=== PATIENT | female | born 2005 | race Caucasian/White ===

== ENCOUNTER → 2023-11-27 15:20 | Outpatient (REF) | payer BC, SELFPAY | LOC: PNTC 15:20 | PROVIDERS: ATTENDING PHYSICIAN Obstetrics & Gynecology | DX: O99.210 Obesity complicating pregnancy, unspecified trimester (principal); O35.5XX0 Maternal care for (suspected) damage to fetus by drugs, not applicable or unspecified | CPT/HCPCS: 76816 ==

== ENCOUNTER → 2024-01-08 15:38 | Outpatient (REF) | payer BC, SELFPAY | LOC: PNTC 15:38 | PROVIDERS: ATTENDING PHYSICIAN Obstetrics & Gynecology | DX: O35.5XX0 Maternal care for (suspected) damage to fetus by drugs, not applicable or unspecified (principal); O99.210 Obesity complicating pregnancy, unspecified trimester | CPT/HCPCS: 76816 ==

== ENCOUNTER 2024-01-12 19:16 | Observation (INO) | payer OTHER, SELFPAY ==
[2024-01-12 19:27] VITALS: BP 132/86; BMI 40.4
[2024-01-12 19:50] LABS: Urine Albumin Trace (Neg - Trace); Urine Bilirubin 1+ (Negative); Urine Character Clear (Clear); Urine Color Yellow; Urine Glucose Trace (Negative); Urine Ketone Trace (Negative); Urine Leukocyte 2+ (Negative); Urine Nitrite Negative (Negative); Urine Occult Blood Negative (Negative); Urine Specific Gravity 1.015 (<1.030); Urine Urobilinogen 1+ (Neg - 1+); Urine pH 6.5 (5.0-9.0)
[2024-01-12 19:58] LABS: Urine Squamous Cell >30 /LPF (Few)
[2024-01-12 19:59] LABS: Urine Bacteria Many (Negative); Urine Red Blood Cell None Seen /HPF (0-2); Urine White Cell 21-25 /HPF (0-5)
[2024-01-12 19:59] LABS: % Basophils 0.3 % (0-2); % Eosinophils 1.8 % (0-6); % Immature Granulocytes 1.2 % (0-0.5); % Lymphocytes 17.8 % (20.5-51.1); % Monocytes 6.8 % (1.7-9.3); % Neutrophils 72.1 % (42.2-75.2); Absolute Basophils 0.1 10^3/uL (0-0.2); Absolute Eosinophils 0.3 10^3/uL (0-0.7); Absolute Immature Granulocytes 0.2 10^3/uL (0-0.05); Absolute Lymphocytes 2.6 10^3/uL (1.2-3.4); Absolute Neutrophils 10.5 10^3/uL (1.4-6.5); Hematocrit 33.6 % (37.0-47.0); Hemoglobin 11.7 g/dL (12.0-16.0); Mean Corp Hgb Conc. 34.8 g/dL (33.0-37.0); Mean Corpuscular Hgb 30.2 pg (27.0-31.0); Mean Corpuscular Volume 86.6 fL (81.0-99.0); Mean Platelet Volume 9.6 fL (7.4-10.4); Nucleated Red Blood Cells % 0 %; Platelet Count 262 10^3/uL (130-400); Red Blood Cell Count 3.88 10^6/uL (4.20-5.40); Red Cell Dist. Width 12.5 % (11.5-14.5); White Blood Cell Count 14.6 10^3/uL (4.8-10.8)
[2024-01-12 20:31] LABS: ALT (SGPT) 12 U/L (0-35); AST (SGOT) 28 U/L (14-36); Albumin 3.8 g/dl (3.5-5.0); Alkaline Phosphatase 169 U/L (38-126); Blood Urea Nitrogen 9 mg/dl (7-17); Calcium 9.3 mg/dl (8.4-10.2); Carbon Dioxide 20 mmol/L (22-30); Chloride 106 mmol/L (98-107); Estimated Creatinine Clearance > 125 ml/min; Glucose 88 mg/dl (70-99); Sodium 134 mmol/L (135-145); Total Bilirubin 0.5 mg/dl (0.2-1.3); eGFR > 60.00
== END 2024-01-12 20:55 | disposition home or self-care (01) ==
LOC: LDRP 19:16
PROVIDERS: ADMITTING PHYSICIAN Obstetrics & Gynecology
DX: O24.410 Gestational diabetes mellitus in pregnancy, diet controlled (principal); Z3A.34 34 weeks gestation of pregnancy; O99.343 Other mental disorders complicating pregnancy, third trimester; F41.9 Anxiety disorder, unspecified; F32.A Depression, unspecified
CPT/HCPCS: 80053; 81003; 81015; 85025; 86850; 86900; 86901; 87086; G0378

== ENCOUNTER → 2024-01-15 09:08 | Outpatient (REF) | payer OTHER, SELFPAY ==
--- NOTE | 2024-01-15 09:01 | PN.DIAED06 ---
Meal Plan - Gestational
- Breakfast
Gestational Diabetes Meal Plan Name: 1800 calories
Breakfast - Total Carbohydrate (grams): 30
Breakfast - Starch Carbohydrate: 1
Breakfast - Fruit Carbohydrate: 0
Breakfast - Milk Carbohydrate: 1
Breakfast - Nonstarchy Vegetables: Yes
Breakfast - Meat/Protein: 1
Breakfast - Fat: 2
- Morning Snack
Morning Snack - Total Carbohydrate (grams): 30
Morning Snack - Starch Carbohydrate: 1
Morning Snack - Fruit Carbohydrate: 0
Morning Snack - Milk Carbohydrate: 1
Morning Snack - Nonstarchy Vegetables: Yes
Morning Snack - Meat/Protein: 0.5
Morning Snack - Fat: 0
- Lunch
Lunch - Total Carbohydrate (grams): 45
Lunch - Starch Carbohydrate: 2
Lunch - Fruit Carbohydrate: 1
Lunch - Milk Carbohydrate: 0
Lunch - Nonstarchy Vegetables: Yes
Lunch - Meat/Protein: 2
Lunch - Fat: 1
- Afternoon Snack
Afternoon Snack - Total Carbohydrate (grams): 30
Afternoon Snack - Starch Carbohydrate: 1
Afternoon Snack - Fruit Carbohydrate: 1
Afternoon Snack - Milk Carbohydrate: 0
Afternoon Snack - Nonstarchy Vegetables: Yes
Afternoon Snack - Meat/Protein: 1
Afternoon Snack - Fat: 0
- Dinner
Dinner - Total Carbohydrate (grams): 45
Dinner - Starch Carbohydrate: 2
Dinner - Fruit Carbohydrate: 0
Dinner - Milk Carbohydrate: 1
Dinner - Nonstarchy Vegetables: Yes
Dinner - Meat/Protein: 2
Dinner - Fat: 2
- Evening Snack
Evening Snack - Total Carbohydrate (grams): 30
Evening Snack - Starch Carbohydrate: 1
Evening Snack - Fruit Carbohydrate: 0
Evening Snack - Milk Carbohydrate: 1
Evening Snack - Nonstarchy Vegetables: Yes
Evening Snack - Meat/Protein: 1
Evening Snack - Fat: 1
--- NOTE | 2024-01-15 10:12 | PN.DIAED02 ---
Referral
Referred For: Gestational Diabetes Self-Management Training, Management of Diabetes During , Medical Nutrition Therapy, Self-Blood Glucose Monitoring
PHI Release Authorization Form Signed: Yes
Patient Problems:
Current Active Problems
Problem Status Onset
Diabetes mellitus, gestational ~01/09/24
Demographic
(1) Diabetes mellitus, gestational
Status: Acute
Qualifiers:
Gestational diabetes mellitus control: diet-controlled Trimester: third trimester Qualified Code(s): O24.410 - Gestational diabetes mellitus in , diet controlled
Code(s): O24.419 - Gestational diabetes mellitus in , unspecified control
Patient's primary language-: Honduran
- Social
Primary Support Person: Self, Parent(s)
Primary Care Takers: Self, Parent(s)
Living Arrangements: Parent(s)
- Learning Methods
Preferred Method: Reading, Video
Barriers to Learning: None
Care Plan
- Education Needs
Patient Education Needs: Nutritional management, Preconception care//gestational diabetes management
Recommended Diabetes Training Program based on assessment: Gestational Diabetes Management
- Plan of Care
Plan of Care:
Met with Ms. Jacobs today, , currently at 34 weeks of gestation, here today for medical nutrition therapy.
Explained glucose metabolism in body and what occurs during to cause increase blood sugar. Discussed importance of keeping BS well controlled to avoid complications to the baby during and after (macrosomia, hypoglycemia). Explained
to Alina that she is at increased risk of developing T2DM in the future. Alina reports that she alvaraod a glucose monitor at home and has been monitoring her blood sugars 2 hrs after each meal since dx of GDM. Reviewed proper testing technique, testing
sites and testing pattern. She is aware to test FBS and 2 hr pp each meal. Expected results for FBS <95 mg/dl and 2 hr pp <120 mg/dl.
Alina does not eat much of any non-starchy vegetables, she states that her diet consists mainly of carbs and some fruits. She eats chicken or steak with mac &cheese or mashed potatoes for dinner, sometimes burgers for lunch. She couldn't remember
what else she eats at lunch. Explained high carbohydrate diet and macronutrients and the effect each has on blood sugar. Provided with 1800 lyly GDM meal plan. She was educated on how to read a nutritional fact label and look at total CHO in relation
to serving size. No fruit or fruit juice until noontime. Provided with handout on snacks as well as 'Choose Your Foods' booklet. A Log sheet was provided for her to record results, she will send her 4 day meal log with all her FBG and 2hr Post
prandial glucose numbers to this office for review. In addition, she will send all her glucose readings to Carole at [facility] every Friday. She was encouraged to keep a regular activity schedule and will reach out should she require insulin.
== END ==
LOC: DES 09:08
PROVIDERS: ATTENDING PHYSICIAN Obstetrics & Gynecology
DX: O24.419 Gestational diabetes mellitus in pregnancy, unspecified control (principal)
CPT/HCPCS: 99078

== ENCOUNTER → 2024-02-05 15:06 | Outpatient (REF) | payer OTHER, SELFPAY | LOC: PNTC 15:06 | PROVIDERS: ATTENDING PHYSICIAN Obstetrics & Gynecology | DX: O24.419 Gestational diabetes mellitus in pregnancy, unspecified control (principal) | CPT/HCPCS: 76816 ==

== ENCOUNTER 2024-02-23 19:04 | Inpatient (IN) | payer OTHER, SELFPAY ==
[2024-02-23 19:19] VITALS: BMI 42.0
[2024-02-23 19:57] LABS: Glucose - Point of Care 110 mg/dl (70-99)
[2024-02-23] MEDS: CYTOTEC 50 MICROGRAM VAG (20:20)
[2024-02-23 20:22] LABS: % Basophils 0.3 % (0-2); % Eosinophils 1.3 % (0-6); % Immature Granulocytes 0.9 % (0-0.5); % Lymphocytes 18.2 % (20.5-51.1); % Monocytes 5.8 % (1.7-9.3); % Neutrophils 73.5 % (42.2-75.2); Absolute Eosinophils 0.2 10^3/uL (0-0.7); Absolute Immature Granulocytes 0.1 10^3/uL (0-0.05); Absolute Lymphocytes 2.3 10^3/uL (1.2-3.4); Absolute Monocytes 0.7 10^3/uL (0.1-0.6); Absolute Neutrophils 9.3 10^3/uL (1.4-6.5); Hemoglobin 11.6 g/dL (12.0-16.0); Mean Corp Hgb Conc. 34.1 g/dL (33.0-37.0); Mean Corpuscular Hgb 29.1 pg (27.0-31.0); Mean Corpuscular Volume 85.2 fL (81.0-99.0); Mean Platelet Volume 9.5 fL (7.4-10.4); Nucleated Red Blood Cells % 0 %; Platelet Count 258 10^3/uL (130-400); Red Blood Cell Count 3.99 10^6/uL (4.20-5.40); Red Cell Dist. Width 13.1 % (11.5-14.5); White Blood Cell Count 12.6 10^3/uL (4.8-10.8)
[2024-02-23] MEDS: LR 1000 IV (20:25)
[2024-02-23 20:55] VITALS: BP 124/77
[2024-02-23] MEDS: CELEXA 10 MG PO (21:52)
[2024-02-24 00:11] LABS: Glucose - Point of Care 112 mg/dl (70-99)
[2024-02-24] MEDS: LR 1000 IV ×3 (00:16→12:36)
[2024-02-24 03:54] LABS: Glucose - Point of Care 96 mg/dl (70-99)
[2024-02-24 07:30] LABS: Glucose - Point of Care 94 mg/dl (70-99)
[2024-02-24 07:53] LABS: ALT (SGPT) < 10 U/L (0-35); AST (SGOT) 21 U/L (14-36); Albumin 3.3 g/dl (3.5-5.0); Alkaline Phosphatase 225 U/L (38-126); Blood Urea Nitrogen 8 mg/dl (7-17); Calcium 9.4 mg/dl (8.4-10.2); Carbon Dioxide 22 mmol/L (22-30); Chloride 107 mmol/L (98-107); Estimated Creatinine Clearance > 125 ml/min; Glucose 94 mg/dl (70-99); Potassium 4.1 mmol/L (3.5-5.1); Sodium 136 mmol/L (135-145); Total Bilirubin 0.4 mg/dl (0.2-1.3); Total Protein 6.4 g/dl (6.3-8.2); eGFR > 60.00
[2024-02-24 12:04] LABS: Glucose - Point of Care 82 mg/dl (70-99)
[2024-02-24] MEDS: FENTANYL/BUPIVACAINE 100 EPIDURAL (12:15)
[2024-02-24] MEDS: SUBLIMAZE 100 MCG EPIDURAL (12:15)
[2024-02-24 16:06] LABS: Protein/creatinine Ratio 0.1; Urine Protein 9 mg/dl
[2024-02-24 17:05] LABS: Cord ABG Comment CORD BLOOD
[2024-02-24 17:08] LABS: B.E. Cord ABG -6.6 mMOL/L; HCO3 Cord ABG 19.7 mmol/L; O2 Saturation % Cord ABG 66.4 %; PCO2 Cord ABG 41 mmHg; PO2 Cord ABG 36 mmHg; pH Cord ABG 7.29
[2024-02-24 17:09] LABS: B.E. Cord ABG -5.2 mMOL/L; O2 Saturation % Cord ABG 16.1 %; PCO2 Cord ABG 67 mmHg; PO2 Cord ABG 14 mmHg; pH Cord ABG 7.18
--- NOTE | 2024-02-24 17:36 | W.IMMPOSTOP ---
Surgical Immed Post Op Note
-
Primary Surgeon: Inge Montes, DO
Assisting Surgeon: Laura Caballero, rn med surg
Pre-op Diagnosis: IUP at 40+4wks, labor, NRFHT, obesity, A2GDM, GHTN, SSRI exposure in
Post-op Diagnosis: IUP at 40+4wks, labor, NRFHT, obesity, A2GDM, GHTN, SSRI exposure in , ?arcuate uterus
Procedure Performed: PLTCS
Anesthesia Type: epidural
Specimen / Cultures: cord gases, cord blood (for maternal blood type O pos), placenta
Estimated Blood Loss: 575ml
Complications: none
Operative Findings: female in the cephalic presentation, nuchal cord x1 and cord also wrapped around wrist (right). Apgars 8/9. Meconium stained fluid. uterus with slight indentation at the fundus, possible arcuate uterus? Otherwise
normal-appearing. Normal b/l tubes and ovaries.
[2024-02-24] MEDS: TORADOL 15 MG IV (19:30)
[2024-02-24] MEDS: PRENATAL PLUS PO (22:43)
[2024-02-24] MEDS: BACTROBAN 2% OINTMENT TOPICAL (22:44)
[2024-02-24] MEDS: CELEXA PO (22:48)
[2024-02-25] MEDS: TORADOL 15 MG IV ×3 (02:00→14:28)
--- NOTE | 2024-02-25 03:20 | DOWNTIME ---
There was a [employer] Pharmacist Downtime on 02/24/2024 from 0100 to 02/25/2024 at 0300. Downtime documentation of patient's care, including medication administrations, has been reconciled in the electronic record per guidelines. Refer to the
patient's paper chart under the miscellaneous tab to see printed paper medication records and downtime forms.
[2024-02-25 04:48] LABS: Hemoglobin 10.1 g/dL (12.0-16.0); Mean Corp Hgb Conc. 34.8 g/dL (33.0-37.0); Mean Corpuscular Hgb 29.2 pg (27.0-31.0); Mean Corpuscular Volume 83.8 fL (81.0-99.0); Mean Platelet Volume 9.6 fL (7.4-10.4); Platelet Count 252 10^3/uL (130-400); Red Blood Cell Count 3.46 10^6/uL (4.20-5.40); Red Cell Dist. Width 13.2 % (11.5-14.5); White Blood Cell Count 22.6 10^3/uL (4.8-10.8)
--- NOTE | 2024-02-25 08:13 | W.PN.ANS.POP ---
Anesthesia Post Operative
- Anesthesia Post Op Note
Vital Signs Stable-See Nursing Note: Yes
Airway Patent: Yes
Adequate Pain Control: Yes
Change in Mental Status: No
Current Postoperative Nausea & Vomiting: No
Anesthesia Complications: No
General Anesthetic Recall: No
Unplanned Admission: No
Post Op Hydration Adequate: Yes
[2024-02-25] MEDS: BACTROBAN 2% OINTMENT 1 APPLIC TOPICAL ×2 (08:16→14:29)
[2024-02-25] MEDS: SENOKOT-S 1 TABLET PO (09:16)
[2024-02-25] MEDS: PRENATAL PLUS 1 TABLET PO (09:16)
[2024-02-25] MEDS: FEOSOL 325 MG PO ×2 (09:16→19:59)
--- NOTE | 2024-02-25 15:15 | CM ---
Met with new mother Alina and her mother at bedside
Mom has named her daughter Ada Jacobs
Father of baby is 'around' but 'not really involved'
Alina lives with her step-father and 2 brothers ages 9 and 7. Her mother lives nearby and is supportive. Step-father is also supportive
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
Mom reports she plans to breast feed and has a breast pump
Mom reports she has supplies for her including crib and car seat
Planning to use [facility] in [place] - will schedule appointment
Given information on the WIC program and the [facility] Maternal Child VNA program
CM will follow for additional needs if needed
[2024-02-25] MEDS: MOTRIN 600 MG PO (20:09)
[2024-02-25] MEDS: TYLENOL 650 MG PO (21:16)
[2024-02-25] MEDS: CELEXA 10 MG PO (22:04)
[2024-02-25] MEDS: BACTROBAN 2% OINTMENT TOPICAL (22:06)
[2024-02-26] MEDS: TYLENOL 650 MG PO ×4 (01:39→23:50)
[2024-02-26] MEDS: BACTROBAN 2% OINTMENT 1 APPLIC TOPICAL ×3 (07:30→21:10)
[2024-02-26] MEDS: FEOSOL 325 MG PO ×2 (09:04→19:42)
[2024-02-26] MEDS: MOTRIN 600 MG PO ×3 (09:04→23:49)
[2024-02-26] MEDS: PRENATAL PLUS 1 TABLET PO (09:04)
[2024-02-26] MEDS: PERCOCET 5/325 1 TABLET PO (14:10)
[2024-02-26] MEDS: MYLICON 80 MG PO (16:40)
[2024-02-26] MEDS: SENOKOT-S 1 TABLET PO (16:40)
[2024-02-26] MEDS: CELEXA 10 MG PO (21:10)
[2024-02-27] MEDS: TYLENOL 650 MG PO ×2 (06:28→12:42)
[2024-02-27] MEDS: MOTRIN 600 MG PO ×2 (06:28→12:43)
[2024-02-27] MEDS: PRENATAL PLUS 1 TABLET PO (08:35)
[2024-02-27] MEDS: FEOSOL 325 MG PO (08:35)
[2024-02-27] MEDS: BACTROBAN 2% OINTMENT 1 APPLIC TOPICAL ×2 (08:37→10:43)
[2024-02-27 13:30] LABS: Syphilis/T. pallidum Ab Reflex Negative (Negative)
--- NOTE | 2024-02-27 14:47 | W.DS.TRANS ---
DC Summary - [employer]
-
Discharge Instructions:
Discharge Diagnosis/Procedures primary cs
Instructions:
Stand-Alone Forms: LDRP Delivery
Changes to Home Medications: No
Discharge Medications:
DC Medications w/original date entered in [facility]
citalopram 10 mg tablet 10 mg PO QHS Mental Health/Anxiety 01/12/24
prenat.vits,lyly,rhk-zgxj-xhihn 1 tab PO DAILY Supplement 01/12/24
ibuprofen 600 mg tablet 600 mg PO Q6HPRN PRN cramps #90 tabs 02/27/24
Home Medication Changes
Pending Results: No
Total time spent discharging patient (in min): 20
== END 2024-02-27 15:36 | disposition home or self-care (01) | DRG 788 ==
LOC: LDRP 19:04
PROVIDERS: Obstetrics & Gynecology; ADMITTING PHYSICIAN Obstetrics & Gynecology; FAMILY PHYSICIAN Obstetrics & Gynecology
PROC: 3E0P7VZ Introduction of Hormone into Female Reproductive, Via Natural or Artificial Opening (ICD-10-PCS; 2024-02-23)
PROC: 3E0E77Z Introduction of Electrolytic and Water Balance Substance into Products of Conception, Via Natural or Artificial Opening (ICD-10-PCS; 2024-02-24)
PROC: 6A550ZT Pheresis of Cord Blood Stem Cells, Single (ICD-10-PCS; 2024-02-24)
PROC: 10D00Z1 Extraction of Products of Conception, Low, Open Approach (ICD-10-PCS; 2024-02-24)
PROC: 10H07YZ Insertion of Other Device into Products of Conception, Via Natural or Artificial Opening (ICD-10-PCS; 2024-02-24)
PROC: 10907ZC Drainage of Amniotic Fluid, Therapeutic from Products of Conception, Via Natural or Artificial Opening (ICD-10-PCS; 2024-02-24)
DX: O24.420 Gestational diabetes mellitus in childbirth, diet controlled (principal); Z3A.40 40 weeks gestation of pregnancy; Z37.0 Single live birth; O48.0 Post-term pregnancy; O99.344 Other mental disorders complicating childbirth; F32.A Depression, unspecified; F41.9 Anxiety disorder, unspecified; O76 Abnormality in fetal heart rate and rhythm complicating labor and delivery; O13.4 Gestational [pregnancy-induced] hypertension without significant proteinuria, complicating childbirth; S30.811A Abrasion of abdominal wall, initial encounter; X58.XXXA Exposure to other specified factors, initial encounter; Y93.89 Activity, other specified; Y92.9 Unspecified place or not applicable; O99.214 Obesity complicating childbirth; O69.81X0 Labor and delivery complicated by cord around neck, without compression, not applicable or unspecified; O69.82X0 Labor and delivery complicated by other cord entanglement, without compression, not applicable or unspecified; O77.0 Labor and delivery complicated by meconium in amniotic fluid; O34.03 Maternal care for unspecified congenital malformation of uterus, third trimester; Q51.810 Arcuate uterus; Z82.49 Family history of ischemic heart disease and other diseases of the circulatory system
CPT/HCPCS: 88307; 80053; 82570; 82803; 82962; 84156; 85025; 85027; 86780; 86850; 86900; 86901

== ENCOUNTER 2024-05-04 22:44 | Emergency (ER) | payer OTHER, SELFPAY ==
[2024-05-04 23:03] VITALS: BP 134/80
[2024-05-04 23:41] LABS: % Basophils 0.6 % (0-2); % Eosinophils 5.4 % (0-6); % Immature Granulocytes 0.3 % (0-0.5); % Lymphocytes 34.7 % (20.5-51.1); % Monocytes 5.7 % (1.7-9.3); % Neutrophils 53.3 % (42.2-75.2); Absolute Basophils 0.1 10^3/uL (0-0.2); Absolute Eosinophils 0.5 10^3/uL (0-0.7); Absolute Lymphocytes 3.1 10^3/uL (1.2-3.4); Absolute Monocytes 0.5 10^3/uL (0.1-0.6); Absolute Neutrophils 4.8 10^3/uL (1.4-6.5); Hematocrit 34.8 % (37.0-47.0); Hemoglobin 12.2 g/dL (12.0-16.0); Mean Corp Hgb Conc. 35.1 g/dL (33.0-37.0); Mean Corpuscular Hgb 26.8 pg (27.0-31.0); Mean Corpuscular Volume 76.5 fL (81.0-99.0); Nucleated Red Blood Cells % 0 %; Platelet Count 348 10^3/uL (130-400); Red Blood Cell Count 4.55 10^6/uL (4.20-5.40)
[2024-05-04 23:48] LABS: Urine Albumin Negative (Neg - Trace); Urine Bilirubin Negative (Negative); Urine Character Clear (Clear); Urine Color Yellow; Urine Glucose Negative (Negative); Urine Ketone Negative (Negative); Urine Leukocyte Trace (Negative); Urine Nitrite Negative (Negative); Urine Occult Blood Negative (Negative); Urine Urobilinogen Negative (Neg - 1+)
[2024-05-04 23:57] LABS: HCG, Serum Qualitative Screen Negative
[2024-05-05] LABS: ALT (SGPT) 20 U/L (0-35); AST (SGOT) 30 U/L (14-36); Albumin 4.5 g/dl (3.5-5.0); Alkaline Phosphatase 117 U/L (38-126); Blood Urea Nitrogen 14 mg/dl (7-17); Calcium 9.8 mg/dl (8.4-10.2); Carbon Dioxide 24 mmol/L (22-30); Chloride 105 mmol/L (98-107); Glucose 120 mg/dl (70-99); Lipase 177 U/L (23-300); Potassium 3.9 mmol/L (3.5-5.1); Sodium 138 mmol/L (135-145); Total Bilirubin 0.3 mg/dl (0.2-1.3); Total Protein 7.3 g/dl (6.3-8.2); eGFR > 60.00
[2024-05-05 00:25] LABS: Urine Squamous Cell 16-20 /LPF (Few)
[2024-05-05 00:27] LABS: Urine Bacteria Few (Negative)
[2024-05-05] MEDS: TORADOL 30 MG IM (01:07)
[2024-05-05 01:09] VITALS: BP 129/90
[2024-05-05 01:10] VITALS: BMI 40.4
--- NOTE | 2024-05-05 02:04 | ED.GENMED ---
History of Present Illness
General
Chief Complaint: Abdominal Pain
Source: patient
Exam Limitations: none
Time Seen by Provider: 05/05/24 00:11
Nursing documentation reviewed up to this point in time: agreed with
History of Present Illness
History of Present Illness:
Patient is a 19-year-old female who is 8 and half weeks who presents to the emergency department complaining of significant right upper quadrant pain this evening. Patient's been having it intermittently since delivering. Patient states
it is worse with eating. Patient had a hoagie tonight. Patient denies fever or chills. Patient had mild nausea but denies any vomiting, diarrhea, melena or hematochezia. Patient denies any symptoms. Not breast-feeding
Past History
Past History
ED Past Medical History: Psychiatric (Anxiety and depression)
ED Past Surgical History: None
Social History
Tobacco: Non-smoker
Alcohol: None
Drug: None
Personal: Single
Living: with family
Employment: Employed
Family History
Family History: Other (Noncontributory)
Review of Systems
Review of Systems
All Other Systems: ROS reviewed and negative except as documented in HPI and ROS
Constitutional: Reports no symptoms
EENT: Reports no symptoms
Respiratory: Reports no symptoms
Cardiac: Reports no symptoms
ABD/GI: Reports abdominal pain and nausea; Denies vomiting, diarrhea, constipated, bloody stools, black stools or anorexia
: Reports no symptoms
Musculoskeletal: Reports no symptoms
Skin: Reports no symptoms
Neurological: Reports no symptoms
Hematologic/Lymphatic: Reports no symptoms
Phy Exam
Physical Exam
Physical Exam:
Physical Exam
General: mild distress, alert and appropriate, well nourished, well hydrated
HENT: Normocephalic, supple with no lymphadenopathy, no thyromegaly
Eyes: Clear sclera, conjuctiva without injection
Heart: Regular rhythm and rate. No S3, S4. No murmur.
Lungs: No respiratory distress, no stridor, lung sounds clear and equal bilaterally
Abdomen: Soft, mild to moderate right upper quadrant tenderness without guarding or rebound, no organomegaly, no CVA tenderness, BS good
Neuro: Alert and oriented x 3, CN II - XII intact, no motor focality, no cerebellar dysfunction
Skin: no rash
Psychiatric: well kept. interactive and cooperative
Extremities: No edema, cyanosis, tenderness, Good and equal peripheral pulses.
Scores
Heart Failure Risk
Heart Failure Risk Score: Not Applicable
Heart Score for Chest Pain Patients
STEMI patient?: Not applicable
Withdrawal Assessment of Alcohol
Withdrawal Assessment Completed?: Not applicable
Course
Orders/Labs/Results
Orders:
Orders
05/04/24 23:09
Test Result ONCE
05/04/24 23:24
Complete Blood Count/With Diff Urgent
Comprehensive Metabolic Panel Urgent
HCG, Serum Qualitative Screen Urgent
Lipase Urgent
Urinalysis Reflex To Culture Urgent
Date Specimen was Collected: 05/04/24
Time Specimen was Collected: 23:09
Urine Microscopic Reflex Cult Urgent
05/05/24 00:50
Ketorolac [Toradol] 30 mg IM NOW STA
05/05/24 00:54
US Abdomen Complete/Upper Urgent
Comment:
Reason For Exam: RUQ tender
Abnormal Lab Results
05/04/24
23:24
Hct 34.8 L %
(37.0-47.0)
MCV 76.5 L fL
(81.0-99.0)
MCH 26.8 L pg
(27.0-31.0)
Glucose 120 H mg/dl
(70-99)
Leukocyte Esterase Rfl Trace A
(Negative)
Urine RBC 3-6 A /HPF
(0-2)
Urine Bacteria (Reflex) Few A
(Negative)
05/04/24 23:24
05/04/24 23:24
Vital Signs
Initial and Last Documented VS:
Initial Vital Signs
Temp Pulse Resp BP Pulse Ox
98.6 F 62 20 134/80 99
05/04/24 23:03 05/04/24 23:03 05/04/24 23:03 05/04/24 23:03 05/04/24 23:03
Last Documented Vital Signs
Temp Pulse Resp BP Pulse Ox
98.6 F 62 20 129/90 99
05/04/24 23:03 05/04/24 23:03 05/04/24 23:03 05/05/24 01:09 05/05/24 01:10
*Radiology
Radiology exam reviewed: radiology read reviewed (Gallstones without apparent cholecystitis)
*Pulse Oximetry
Patient hypoxic: no
*EKG
Interpreted by ED Provider?: NA
*Watch Inspector Interpretation
Rate: Watch Inspector- N/A
*Critical Care Note
Total Time (30-74mins, 75-104mins- exclusive of procedures): Not Applicable
Update Note
Update Note:
Patient has gallstones without cholecystitis. Patient does not have LFT elevation or lipase elevation. However will refer patient to surgery given her symptoms are suggestive of gallbladder disease.
ED Attending Note
-
Portions of this chart may have been created with voice recognition software.� Occasional wrong word or��sound alike� substitutions may have occurred due to the inherent limitations of voice recognition software.
Discharge Plan
Departure
Patient Disposition: Home (Routine Discharge)
Date of Disposition: 05/05/24
Time of Disposition: 02:33
Patient with high blood pressure during this ER visit?: No
Condition: Good
Covid-19: Not Applicable
Discharge Problem:
Abdominal pain, Cholelithiasis
Instructions: Gallstones (DC), Abdominal Pain
Prescriptions:
No Action
prenat.vits,lyly,wxa-rtxv-ffgri Tablet
1 tab PO DAILY
citalopram 10 mg Tablet
10 mg PO QHS
Referrals:
Dixie Martinez CRNP [Family Provider] - Follow up in 2-3 days
Isael Kemp MD [Active] - Call in 1-3 days for appt
Activity Restrictions/Additional Instructions:
Acetaminophen 650 mg or ibuprofen 600 mg every 6 hours for pain. Avoid fatty or fried foods. Follow-up with your physician and the surgeon above.
Interventions
Interventions:
*Risk Screen - Suicide Last Done: 05/04/24 23:03
*General Assessment Last Done: 05/04/24 23:03
*Neglect/Abuse Screening Last Done: 05/04/24 23:03
ED- Fall Risk Assessment Last Done: 05/04/24 23:03
*ED COVID-19 Vaccine History Last Done: 05/04/24 23:03
DX-Gvlyrx-Qzzzyxlbxd Assessment Last Done: 05/05/24 01:11
Discharge Date and Time
Print Language: JORDANIAN
[2024-05-05 02:54] VITALS: BP 125/82
== END 2024-05-05 02:58 | disposition home or self-care (01) ==
LOC: EMR 22:44
PROVIDERS: EMERGENCY PHYSICIAN Emergency Medicine; FAMILY PHYSICIAN Nurse Practitioner
DX: R10.11 Right upper quadrant pain (principal); K80.20 Calculus of gallbladder without cholecystitis without obstruction
CPT/HCPCS: 99284; 96372; 76700; 80053; 81003; 81015; 83690; 84703; 85025

== ENCOUNTER 2024-05-14 14:20 | Observation (INO) | payer OTHER, SELFPAY ==
[2024-05-14] VITALS (13 sets, daily range): BP systolic 94–179; BP diastolic 49–96; BMI 40.4
--- NOTE | 2024-05-14 06:28 | ED.GENMED ---
History of Present Illness
<Radha Merino MD, Resident - Last Filed: 05/14/24 10:19>
General
Chief Complaint: Abdominal Pain
Time Seen by Provider: 05/14/24 06:26
<Jace Wolfe DO - Last Filed: 05/14/24 13:54>
History of Present Illness
History of Present Illness:
HPI: Patient presents with severe right upper quadrant pain. This is associated with vomiting. Of note, she is scheduled for cholecystectomy 06/07/2024. She has pain that radiates into the back/shoulder region. This feels very similar to when she
was here with gallstones a week ago.
EXAM:
GENERAL: The patient is crying in moderate to severe distress, BMI 40
HEENT: Moist oral mucosa
CARDIOVASCULAR: No murmurs, normal heart rate, regular rhythm, No chest wall tenderness
PULMONARY: No respiratory distress, breath sounds are clear and equal
ABDOMEN: Soft with no peritoneal signs, moderate right upper quadrant tenderness
NEUROLOGIC: Excellent strength all extremities, no coordination deficits
PSYCHIATRIC: Appropriate mental status, normal insight and judgement
EXTREMITIES: Nontender, no edema, moves all extremities equally
SKIN: No rash, no lesions
TIME OF INITIAL ENCOUNTER: 6:35 AM
NUMBER AND COMPLEXITY OF PROBLEMS ADDRESSED AT THE ENCOUNTER
� Chronic conditions affecting care: Gallstones, depression
� Acute Exacerbation and/or Progression of Chronic Illness: This is an acute but recurring problem
� Differential Diagnosis includes: Biliary colic, cholecystitis, pancreatitis, GERD
AMOUNT AND/OR COMPLEXITY OF DATA TO BE REVIEWED AND ANALYZED
� I performed an independent evaluation of and my interpretation is:
EKG:
CT:
X-rays:
Laboratory Studies: White count 12.6, hemoglobin normal, LFTs and lipase unremarkable
Other: Ultrasound imaging personally viewed�gallstones again seen but no evidence for infection
� Review of other/old records: Ultrasound from 05/05/2024 showed gallstones without cholecystitis
� Clinical information was obtained by an independent historian: I spoke to family at bedside
� Prescriptions/Medications Considered but not given:
� Further testing considered but not performed:
RISK OF COMPLICATIONS AND/OR MORBIDITY OR MORTALITY OF PATIENT MANAGEMENT
� Social determinants of health affecting care: Lives at home
� Discussion with other providers: I discussed case with Dr. Vu who recommends keeping in the patient in the ED until he can evaluate patient later today; Dr. Vu evaluated patient at 1:50 PM and will take on his service
for further management.
� Escalation of care including admission/observation vs risk of discharge considered: The patient appears very uncomfortable. She was given Dilaudid and Zofran along with IV fluids. We did repeat Dilaudid later in her stay in
the ED because of recurrence of pain.
Past History
<Radha Merino MD, Resident - Last Filed: 05/14/24 10:19>
Past History
ED Past Medical History: Psychiatric (Anxiety and depression)
ED Past Surgical History: None
Social History
Tobacco: Non-smoker
Alcohol: None
Drug: None
Personal: Single
Living: with family
Employment: Employed
Family History
Family History: Other (Noncontributory)
Phy Exam
<Radha Merino MD, Resident - Last Filed: 05/14/24 10:19>
Physical Exam
Physical Exam:
on the note
Course
<Radha Merino MD, Resident - Last Filed: 05/14/24 10:19>
Orders/Labs/Results
Orders:
Orders
05/14/24 06:28
IV Insert/Care/Rem.- Treatment PRN
05/14/24 06:35
0.9% Sodium Chloride 1000 ml [Nss] 1,000 ml IV BOLUS
Test Result ONCE
05/14/24 06:38
Complete Blood Count/With Diff Urgent
Comprehensive Metabolic Panel Urgent
HCG, Serum Qualitative Screen Urgent
Lipase Urgent
05/14/24 06:39
0.9% Sodium Chloride 1000 ml [Nss] 1,000 ml IV BOLUS
HYDROmorphone [Dilaudid] 1 mg IV NOW STA
Ondansetron Injectable [Zofran] 4 mg .ROUTE .STK-MED ONE
Ondansetron Injectable [Zofran] 4 mg IV NOW STA
05/14/24 06:40
HYDROmorphone [Dilaudid] 1 mg .ROUTE .STK-MED ONE
05/14/24 07:04
US Abdomen Complete/Upper Urgent
Comment:
Reason For Exam: RUQ pain
05/14/24 08:36
HYDROmorphone [Dilaudid] 0.5 mg IV NOW STA
05/14/24 12:11
HYDROmorphone [Dilaudid] 0.5 mg IV NOW STA
Abnormal Lab Results
05/14/24
06:38
WBC 12.6 H 10^3/uL
(4.8-10.8)
MCV 76.5 L fL
(81.0-99.0)
MCH 26.5 L pg
(27.0-31.0)
Abs Immat Gran (auto) 0.1 H 10^3/uL
(0-0.05)
Absolute Neuts (auto) 10.0 H 10^3/uL
(1.4-6.5)
Neutrophils % 79.5 H %
(42.2-75.2)
Lymphocytes % 15.1 L %
(20.5-51.1)
Chloride 108 H mmol/L
(98-107)
Glucose 169 H mg/dl
(70-99)
AST 44 H U/L
(14-36)
Alkaline Phosphatase 138 H U/L
(38-126)
05/14/24 06:38
05/14/24 06:38
Vital Signs
Initial and Last Documented VS:
Initial Vital Signs
Temp Pulse Resp BP Pulse Ox
98.3 F 74 20 179/83 100
05/14/24 06:17 05/14/24 06:17 05/14/24 06:17 05/14/24 06:17 05/14/24 06:17
Last Documented Vital Signs
Temp Pulse Resp BP Pulse Ox
98.3 F 63 19 136/84 96
05/14/24 06:17 05/14/24 12:11 05/14/24 12:11 05/14/24 12:11 05/14/24 12:11
<Jace Wolfe DO - Last Filed: 05/14/24 13:54>
Orders/Labs/Results
Orders:
Orders
05/14/24 06:28
IV Insert/Care/Rem.- Treatment PRN
05/14/24 06:35
0.9% Sodium Chloride 1000 ml [Nss] 1,000 ml IV BOLUS
Test Result ONCE
05/14/24 06:38
Complete Blood Count/With Diff Urgent
Comprehensive Metabolic Panel Urgent
HCG, Serum Qualitative Screen Urgent
Lipase Urgent
05/14/24 06:39
0.9% Sodium Chloride 1000 ml [Nss] 1,000 ml IV BOLUS
HYDROmorphone [Dilaudid] 1 mg IV NOW STA
Ondansetron Injectable [Zofran] 4 mg .ROUTE .STK-MED ONE
Ondansetron Injectable [Zofran] 4 mg IV NOW STA
05/14/24 06:40
HYDROmorphone [Dilaudid] 1 mg .ROUTE .STK-MED ONE
05/14/24 07:04
US Abdomen Complete/Upper Urgent
Comment:
Reason For Exam: RUQ pain
05/14/24 08:36
HYDROmorphone [Dilaudid] 0.5 mg IV NOW STA
05/14/24 12:11
HYDROmorphone [Dilaudid] 0.5 mg IV NOW STA
Abnormal Lab Results
05/14/24
06:38
WBC 12.6 H 10^3/uL
(4.8-10.8)
MCV 76.5 L fL
(81.0-99.0)
MCH 26.5 L pg
(27.0-31.0)
Abs Immat Gran (auto) 0.1 H 10^3/uL
(0-0.05)
Absolute Neuts (auto) 10.0 H 10^3/uL
(1.4-6.5)
Neutrophils % 79.5 H %
(42.2-75.2)
Lymphocytes % 15.1 L %
(20.5-51.1)
Chloride 108 H mmol/L
(98-107)
Glucose 169 H mg/dl
(70-99)
AST 44 H U/L
(14-36)
Alkaline Phosphatase 138 H U/L
(38-126)
05/14/24 06:38
05/14/24 06:38
Vital Signs
Initial and Last Documented VS:
Initial Vital Signs
Temp Pulse Resp BP Pulse Ox
98.3 F 74 20 179/83 100
05/14/24 06:17 05/14/24 06:17 05/14/24 06:17 05/14/24 06:17 05/14/24 06:17
Last Documented Vital Signs
Temp Pulse Resp BP Pulse Ox
98.3 F 63 19 136/84 96
05/14/24 06:17 05/14/24 12:11 05/14/24 12:11 05/14/24 12:11 05/14/24 12:11
<Radha Merino MD, Resident - Last Filed: 05/14/24 10:19>
*Critical Care Note
Total Time (30-74mins, 75-104mins- exclusive of procedures): Not Applicable
ED Attending Note
<Radha Merino MD, Resident - Last Filed: 05/14/24 10:19>
-
Portions of this chart may have been created with voice recognition software.� Occasional wrong word or��sound alike� substitutions may have occurred due to the inherent limitations of voice recognition software.
Discharge Plan
Departure
Patient Disposition: Admit
Date of Disposition: 05/14/24
Time of Disposition: 13:53
Presentation/result/management discussed w/ accepting MD/DO: dr vu
Patient with high blood pressure during this ER visit?: Yes
Discharge Problem:
Biliary colic
Prescriptions:
No Action
prenat.vits,lyly,xvm-cfdl-tlolk Tablet
1 tab PO DAILY
citalopram 10 mg Tablet
10 mg PO QHS
Referrals:
Dixie Martinez CRNP [Family Provider] -
Interventions
Interventions:
*Risk Screen - Suicide Last Done: 05/14/24 06:35
*General Assessment Last Done: 05/14/24 06:35
*Neglect/Abuse Screening Last Done: 05/14/24 06:35
ED- Fall Risk Assessment Last Done: 05/14/24 06:35
HR-Fnbinz-Gvacafhogi Assessment Last Done: 05/14/24 06:35
Discharge Date and Time
Print Language: FRISIAN
[2024-05-14] MEDS: DILAUDID 1 MG IV (06:40)
[2024-05-14] MEDS: ZOFRAN 4 MG IV (06:40)
[2024-05-14] MEDS: NSS 1000 IV ×4 (06:41→23:38)
[2024-05-14 06:48] LABS: % Basophils 0.3 % (0-2); % Eosinophils 0.7 % (0-6); % Immature Granulocytes 0.4 % (0-0.5); % Lymphocytes 15.1 % (20.5-51.1); % Neutrophils 79.5 % (42.2-75.2); Absolute Eosinophils 0.1 10^3/uL (0-0.7); Absolute Immature Granulocytes 0.1 10^3/uL (0-0.05); Absolute Lymphocytes 1.9 10^3/uL (1.2-3.4); Absolute Monocytes 0.5 10^3/uL (0.1-0.6); Hematocrit 37.2 % (37.0-47.0); Hemoglobin 12.9 g/dL (12.0-16.0); Mean Corp Hgb Conc. 34.7 g/dL (33.0-37.0); Mean Corpuscular Hgb 26.5 pg (27.0-31.0); Mean Corpuscular Volume 76.5 fL (81.0-99.0); Nucleated Red Blood Cells % 0 %; Platelet Count 343 10^3/uL (130-400); Red Blood Cell Count 4.86 10^6/uL (4.20-5.40); Red Cell Dist. Width 12.8 % (11.5-14.5); White Blood Cell Count 12.6 10^3/uL (4.8-10.8)
[2024-05-14 06:57] LABS: HCG, Serum Qualitative Screen Negative
[2024-05-14 07:00] LABS: ALT (SGPT) 24 U/L (0-35); AST (SGOT) 44 U/L (14-36); Albumin 4.8 g/dl (3.5-5.0); Alkaline Phosphatase 138 U/L (38-126); Blood Urea Nitrogen 17 mg/dl (7-17); Calcium 10.1 mg/dl (8.4-10.2); Carbon Dioxide 23 mmol/L (22-30); Chloride 108 mmol/L (98-107); Estimated Creatinine Clearance 122 ml/min; Glucose 169 mg/dl (70-99); Lipase 134 U/L (23-300); Potassium 3.8 mmol/L (3.5-5.1); Sodium 141 mmol/L (135-145); Total Bilirubin 0.7 mg/dl (0.2-1.3); Total Protein 7.7 g/dl (6.3-8.2); eGFR > 60.00
[2024-05-14] MEDS: DILAUDID 0.5 MG IV ×2 (08:40→12:14)
--- NOTE | 2024-05-14 14:19 | HPS.HSE ---
Addendum entered and electronically signed by Hayden Cordoba MD 05/14/24 17:51:
Patient seen and examined with nurse practitioner earlier this afternoon. Agree with documented H&P consistent with my simultaneous examination and evaluation.
HPI: 19-year-old female with known history of gallstones. Initially evaluated a few weeks ago with acute biliary colic and was discharged with plans for outpatient cholecystectomy. She developed acute onset of abdominal pain 2 AM the other night
which increased in severity prompting emergency department evaluation today. She has had nausea and vomiting. The pain radiates to her back and shoulder region. It is worse than her previous episodes.
She denies any significant medical history
Past abdominal surgical history only notable for a few months ago
AFVSS
NAD AAOx3
ABD: Soft, nondistended, tenderness palpation localized in the right upper quadrant with positive Frances's
White blood cell count 12.6, hemoglobin and platelet count is normal. Elevated AST and alkaline phosphatase. Normal bilirubin and ALT. Lipase is normal.
Ultrasound abdomen05/14/2024: Images personally reviewed as well as radiologist report. Gallbladder with numerous stones. Wall appears to enhance likely consistent with edema. But no wall thickening. No biliary ductal dilation.
Assessment/plan: 19-year-old female presenting with acute biliary colic and probable acute calculus cholecystitis with resultant intractable abdominal pain and nausea
Reviewed with patient indications for cholecystectomy and she is in agreement to proceed with surgery.
Laparoscopic cholecystectomy with intraoperative cholangiogram was reviewed in detail with the patient including the operative technique utilizing a bedside diagram and drawing. We discussed the steps of the operative procedure. We reviewed
alternative treatment options, benefits and potential risk such as but not limited to bleeding, infectious or wound related complications, iatrogenic injury to surrounding viscera, bile duct injury, bile leak and postcholecystectomy syndrome/fatty
food intolerances. We reviewed the typical postoperative recovery and hospitalization pending operative findings.
Any of the patient's concerns or questions were fully addressed and written informed consent was obtained.
Patient is on the OR schedule for surgery today pending OR availability
Original Note:
Family Physician
-
Family Physician: LÓPEZ Banks
Chief Complaint
-
Abdominal pain
History of Present Illness
Ms Jacobs is a 19yo female who is s/p on 02/24/24 who began having RUQ pain in May presented initially through the on 05/05/24 with biliary colic and was discharged to home for outpatient surgical follow up as her symptoms improved while
in the ED. US imaging with noted cholelithiasis at that time without cholecystitis. She was seen in follow up by Dr. Draper as an outpatient on 05/11/24 with surgery planned for June 07 for robotic cholecystectomy. She notes fatty foods triggered
pain and has been following a low fat diet. Last night, she had a pasta dinner and went to bed as usual. She awakened just after 2 am with significant RUQ abdominal pain radiating into her back and shoulder with nausea and vomiting. Pain did not
improve and she presented to the ED for evaluation early this AM. She denies fevers or chills. She has had several doses of hydromorphone in the ED but still with discomfort and tenderness on exam. She notes interim resolution of nausea.
Medical History
Past Medical History
Past Medical History: Reports Psychiatric (Depression)
Past Surgical History: Reports (02/24/24)
Social History
Tobacco: Non-smoker
Alcohol: None
Living: With Family
Family History
Family History: Not pertinent
Allergies / Home Medications
Allergies reflects when Allergies were last updated in [employer].
Home Medications with original date entered in [employer]
Allergy/Medication List:
Patient Allergies
Allergy/AdvReac Type Severity Reaction Status Date / Time
No Known Allergies Allergy Verified 05/14/24 06:16
�Medication �Instructions �Recorded �Confirmed �Type
citalopram 10 mg tablet 10 mg PO QHS Mental Health/Anxiety 01/12/24 05/14/24 History
acetaminophen 325 mg tablet 650 mg PO DAILYPRN PRN mild pain 05/14/24 05/14/24 History
(Tylenol)
Review of Systems
-
History Source: Patient
A 12 point ROS was completed and negative except as noted: Yes
Physical Exam
Vital Signs
Vital Signs
Temp Pulse Resp BP Pulse Ox
98.3 F 63 19 136/84 96
05/14/24 06:17 05/14/24 12:11 05/14/24 12:11 05/14/24 12:11 05/14/24 12:11
Physical Exam
General: Well Developed and Well Nourished
HEENT: NormoCephalic and Moist mucous membranes
Respiratory: Non Labored Respirations
GI: Soft, Tender (RUQ/epigastric) and Distended
Skin: Warm and Dry
Neuro: Awake, Alert and AO x 3
Psych: Calm
Laboratory Results
-
05/14/24 06:38
05/14/24 06:38
Laboratory Results
Total Bilirubin 0.7 mg/dl (0.2-1.3) 05/14/24 06:38
AST 44 U/L (14-36) H 05/14/24 06:38
ALT 24 U/L (0-35) 05/14/24 06:38
Alkaline Phosphatase 138 U/L (38-126) H 05/14/24 06:38
Lipase 134 U/L (23-300) 05/14/24 06:38
Data Reviewed
-
Ultrasound: Image Personally Visualized and interpreted, Report Reviewed by me, Discussed with Nurse and Discussed with Patient
Lab Data: Labs Reviewed by me, Discussed with Physician and Discussed with Patient
Old Records: Reviewed
Impression/Plan
-
IMPRESSION: 19 yo female with recent 2 months ago (not actively ) who presented initially on 05/05 with biliary colic with outpatient follow up with Dr. Draper and surgery scheduled for later this month for cholecystectomy. She
awakened overnight with severe RUQ pain which has persisted. N/V at onset, now resolved. Repeat US this presentation with gallstones, more distended than previous. WBC mildly elevated. Bilirubin is WNL with mildly elevated alk phos and ast. Pain
persists despite analgesics in the ED. AFVSS. Persistent biliary colic vs acute calculous cholecystitis
PLAN:
Continue NPO except meds
OR later today vs tomorrow pending OR availability for laparoscopic cholecystectomy
Start Zosyn 3.375gm IV q6h
Analgesics prn with tylenol, dilaudid
Zofran prn nausea
IVF while NPO with NSS at 80ml/hr
VTE ppx with SCD's
[2024-05-14] MEDS: ZOSYN 50 IV (15:03)
--- NOTE | 2024-05-14 17:05 | PTCARENOTE ---
Pt received from the ED via stretcher. Transport was w/o incident. Pt is AAOx3, HRR, lungs are clear and resp. easy. Pt denies pain or nausea at present. VSS, Pt is afebrile. Pt instructed on plan of care, and given information on what to expect pre
and post operatively. Pt verbalized understanding of instructions. Call vila is within reach.
--- NOTE | 2024-05-14 17:30 | W.SUR.PREOP ---
Pre-Operative Surgical Note
-
I have examined this patient prior to the performance of the scheduled procedure.
The patient's condition is unchanged from the time of the current History and
Physical and the patient is able to undergo the scheduled procedure.
[2024-05-14] MEDS: ZOSYN IV (18:06)
--- NOTE | 2024-05-14 19:57 | W.IMMPOSTOP ---
Addendum entered and electronically signed by Hayden Cordoba MD 05/14/24 20:28:
#[id number]
Original Note:
Surgical Immed Post Op Note
-
Primary Surgeon: Adalid
Assisting Surgeon: None
Pre-op Diagnosis: Acute calculus cholecystitis
Post-op Diagnosis: Acute calculus cholecystitis
Procedure Performed: Laparoscopic cholecystectomy with intraoperative cholangiogram
Anesthesia Type: GETA +0.25% Marcaine with epi
Specimen / Cultures: Gallbladder
Estimated Blood Loss: 20 mL
Complications: None immediate
Operative Findings: Tensely distended and hydropic gallbladder indicating cystic duct obstruction and acute calculus cholecystitis. Significant wall thickening and edema as well. Intraoperative cholangiogram normal. Cystic duct and artery
individually controlled with hemoclips. Gallbladder removed off liver bed intact and extracted at epigastric port site which had to be enlarged due to size of gallbladder.
Plan: Routine postoperative care, continue antibiotics during hospital stay but not necessary on discharge.
Advance diet as tolerated.
Patient's stepfather updated postoperatively via phone call
--- NOTE | 2024-05-14 22:00 | PTCARENOTE ---
Pt arrived on [address] from PACU at 20:00 post laparoscopic cholecystectomy with intraoperative
cholangiogram. Lap sites approximate, all with surgical adhesive. Pt drowsy, but alert to verbal direction. Pt denies pain, AOx3, bed in low position, call light in reach, N/S running through LAC at 110mL/hr. Pt instructed to call before getting out
of bed.
[2024-05-14] MEDS: CELEXA 10 MG PO (22:40)
[2024-05-15] MEDS: ZOSYN 50 IV ×2 (01:01→09:34)
[2024-05-15 03:47] VITALS: BP 123/72
[2024-05-15] MEDS: NSS 1000 IV (06:37)
[2024-05-15 07:40] VITALS: BP 120/70
[2024-05-15 11:32] VITALS: BP 123/63
--- NOTE | 2024-05-15 11:32 | W.PN.GS2 ---
Today's Communication / Plan
-
Dispo planning
Assessment / Plan
-
19 yo female 2 months post with recurrent biliary colic presenting with ACC now POD #1 lap hazel
AFVSS
Tolerating diet without complications post op
Minimal post op discomfort
--Continue LFD
--Analgesics prn, declining narcotics
--IS while awake
--OOB/Ambulate
D/C to home
Subjective Data
-
Date of Service: May 15, 2024
Patient seen and examined at bedside with Dr. Cordoba. Denies n/v. Tolerating diet. Post op pain is minimal. Passing flatus.
Objective Data
-
Intake and Output
05/14/24 05/15/24 05/16/24
06:59 06:59 06:59
Intake Total 1700 / 1700
Output Total 600 / 600
Balance 1100 / 1100
Intake:
Oral fluids 240 / 240
IV fluids (Total) 1410 / 1410
Normosol 200 / 200
IV piggybacks 50 / 50
Output:
Urine, Voided 600 / 600
Vital Signs
Temp Pulse Resp BP Pulse Ox
98.9 F 49 16 120/70 95
05/15/24 07:40 05/15/24 07:40 05/15/24 07:40 05/15/24 07:40 05/15/24 09:32
Lab Results
05/14/24 06:38
05/14/24 06:38
Calcium 10.1 mg/dl (8.4-10.2) 05/14/24 06:38
Total Bilirubin 0.7 mg/dl (0.2-1.3) 05/14/24 06:38
AST 44 U/L (14-36) H 05/14/24 06:38
ALT 24 U/L (0-35) 05/14/24 06:38
Alkaline Phosphatase 138 U/L (38-126) H 05/14/24 06:38
Total Protein 7.7 g/dl (6.3-8.2) 05/14/24 06:38
Albumin 4.8 g/dl (3.5-5.0) 05/14/24 06:38
Physical Exam
-
NAD
ABD soft, nt, nd.
Incisions with intact glue, no erythema
--- NOTE | 2024-05-15 11:43 | CM ---
Reviewed the chart notes and spoke with the patient at the bedside. Patient resides with mother and step father in a one story home with no steps to enter. The patient reports no DME/VN/SNF in the past. The patient confirmed her pharmacy of
choice is the [facility]. CM continues to be available to patient/family and is monitoring medical plan for needs at discharge.
Plan: Discharge to home when medically stable. No anticipated needs noted. Patient's family will provide transportation.
== END 2024-05-15 12:34 | disposition home or self-care (01) ==
LOC: 2 SOUTH 14:20
PROVIDERS: ADMITTING PHYSICIAN Surgery; EMERGENCY PHYSICIAN Emergency Medicine; FAMILY PHYSICIAN Nurse Practitioner
DX: K80.43 Calculus of bile duct with acute cholecystitis with obstruction (principal); R10.9 Unspecified abdominal pain; M25.519 Pain in unspecified shoulder; F32.A Depression, unspecified; F41.9 Anxiety disorder, unspecified; R74.8 Abnormal levels of other serum enzymes; R16.0 Hepatomegaly, not elsewhere classified; R79.89 Other specified abnormal findings of blood chemistry
CPT/HCPCS: 47563; 88304; 74300; 76000; 76700; 80053; 83690; 84703; 85025; 96361; 96374; 96375; 96376; 99285; G0378

== ENCOUNTER 2024-10-24 22:56 | Emergency (ER) | payer OTHER, SELFPAY ==
[2024-10-24 22:58] VITALS: BP 136/88
--- NOTE | 2024-10-24 23:41 | ED.GENMED ---
History of Present Illness
General
Chief Complaint: Head Injury
Source: patient and family (Father who is accompanying.)
Exam Limitations: none
Time Seen by Provider: 10/24/24 23:30
Nursing documentation reviewed up to this point in time: agreed with
History of Present Illness
History of Present Illness:
This is a 19-year-old female who has no significant past medical history save for mild anxiety/depression. Tonight while attempting to step over an object she inadvertently struck her right forehead on a door jam. She denies fall nor loss of
consciousness. She admits to some bruising and mild swelling to her right forehead. She admits to headache, mild brief nausea but no vomiting. At 1 point noticed some tingling in her feet but no difficulty ambulating and tingling has resolved.
She denies neck nor back pain. She has not taken anything for discomfort.
She takes no anticoagulants. No history of bleeding disorder.
Denies risk of .
Past History
Past History
ED Past Medical History: Psychiatric (Anxiety and depression)
ED Past Surgical History: Cholecystectomy
Social History
Tobacco: Non-smoker
Alcohol: None
Drug: None
Personal: Single
Living: with family
Employment: Employed
Family History
Family History: Other (Noncontributory)
Phy Exam
Physical Exam
Physical Exam:
GENERAL: 19-year-old female appears her stated age, bright and alert, pleasant, easily communicative and in no acute distress. Speech is clear. Father is accompanying.
EYE: pupils equal and reactive. Extraocular muscles intact. Discs are sharp bilaterally. Anicteric. There is very mild soft tissue swelling right forehead with minimal focal ecchymosis. Mild local tenderness to palpation. No palpable bony
abnormality.
NECK: Supple, nontender, full range of motion without difficulty nor pain. No meningismus, no significant adenopathy.
ENT: posterior pharynx is clear, oral mucosa is moist. Right TM is mildly injected superiorly. Left TM is clear. Nares patent without rhinorrhea. No epistaxis.
CARDIAC: Regular rate and rhythm. no murmur.
LUNGS: Clear breath sounds bilaterally, no acute respiratory distress, no wheezes/rales/rhonchi
ABDOMEN: Soft, nondistended, without focal tenderness, no r/g, no cvat. normoactive BS.
NEUROLOGICAL: Alert and oriented x3, no focal neuro deficits. Gait is drake and steady.
SKIN: Warm and dry, normal color, good turgor. Several linear mildly scabbed/crusted lesions to chin. No surrounding erythema. No drainage. No abscess.
MUSCULOSKELETAL: No C/C/E. peripheral pulses are full and equal b/l. No palpable tenderness.
PSYCH: Normal and appropriate interaction.
Course
Orders/Labs/Results
Orders:
Orders
10/24/24 23:40
Ibuprofen [Motrin] 600 mg PO NOW STA
Mupirocin [Bactroban 2% Ointment] 1 applic TOPICAL NOW STA
Vital Signs
Initial and Last Documented VS:
Initial Vital Signs
Temp Pulse Resp BP Pulse Ox
97.8 F 70 20 136/88 100
10/24/24 22:58 10/24/24 22:58 10/24/24 22:58 10/24/24 22:58 10/24/24 22:58
Last Documented Vital Signs
Temp Pulse Resp BP Pulse Ox
97.8 F 70 20 136/88 100
10/24/24 22:58 10/24/24 22:58 10/24/24 22:58 10/24/24 22:58 10/24/24 22:58
MDM/Problems Addressed
Differential Diagnosis Includes:
History and exam consistent with minor head injury/minor forehead contusion. Stepping over an object and inadvertently striking her forehead on a door jam.
No fall no loss of consciousness.
Exam remarkable for minimal soft tissue contusion right forehead.
Neck is supple, nontender with full range of motion without difficulty nor pain.
No focal neurodeficits. Gait is drake and steady.
Lengthy discussion with patient and father, at this point no indication for CT of the head.
Recommend supportive measures, Tylenol versus ibuprofen as needed for headache. Rest. Local ice.
Return precautions discussed.
Also noted on exam is some crusted lesions on chin. Patient admits to frequent picking but these lesions appear mildly impetigo in nature. There is no evidence of cellulitis nor abscess. Will initiate a course of Bactroban.
Encouraged to avoid picking.
Exam is also notable for mild erythema to right TM however patient denies ear pain. Denies nasal congestion. With lack of pain nor evidence of sinus congestion/sinusitis, this is likely baseline physiologic finding.
Prompt follow-up with PCP.
*Pulse Oximetry
Patient hypoxic: no
*Critical Care Note
Total Time (30-74mins, 75-104mins- exclusive of procedures): Not Applicable
ED Attending Note
-
Portions of this chart may have been created with voice recognition software.� Occasional wrong word or��sound alike� substitutions may have occurred due to the inherent limitations of voice recognition software.
Discharge Plan
Departure
Patient Disposition: Home (Routine Discharge)
Date of Disposition: 10/24/24
Time of Disposition: 23:45
Patient with high blood pressure during this ER visit?: No
Condition: Good
Discharge Problem:
minor forehead contusion, Impetigo
Instructions: Impetigo, Contusion (DC), Minor Head Injury (DC)
Prescriptions:
New
ibuprofen 600 mg tablet
600 mg PO QID PRN (Reason: fever or pain) Qty: 20 0RF
mupirocin 2 % ointment
1 applic topical TID Qty: 22 0RF
No Action
citalopram 10 mg Tablet
10 mg PO QHS
acetaminophen [Tylenol] 325 mg Tablet
650 mg PO DAILYPRN PRN (Reason: mild pain)
ibuprofen 200 mg tablet
400 - 600 mg PO Q6HPRN PRN (Reason: moderate pain) Qty: 1 0RF
Interventions
Interventions:
*Risk Screen - Suicide Last Done: 10/24/24 22:58
*Neglect/Abuse Screening Last Done: 10/24/24 22:58
Discharge Date and Time
Print Language: SWEDISH
[2024-10-25] MEDS: BACTROBAN 2% OINTMENT 1 APPLIC TOPICAL (00:11)
[2024-10-25] MEDS: MOTRIN 600 MG PO (00:11)
== END 2024-10-25 00:18 | disposition home or self-care (01) ==
LOC: EMR 22:56
PROVIDERS: EMERGENCY PHYSICIAN Emergency Medicine; FAMILY PHYSICIAN Nurse Practitioner
DX: S00.83XA Contusion of other part of head, initial encounter (principal); W22.8XXA Striking against or struck by other objects, initial encounter; L01.00 Impetigo, unspecified
CPT/HCPCS: 99283